=== PATIENT | male | born 1995 | race Asian ===

== ENCOUNTER 2021-12-15 21:15 | Emergency (ER) | payer OTHER ==
[~2021-12-15] VITALS: Ht 175.3 cm; Wt 100.0 kg
[2021-12-15 21:22] VITALS: BP 135/70
== END 2021-12-16 00:51 | disposition home or self-care (01) ==
LOC: EMS 21:17
DX: S61.211A Laceration without foreign body of left index finger without damage to nail, initial encounter (principal); W26.0XXA Contact with knife, initial encounter; Y93.89 Activity, other specified; Y92.89 Other specified places as the place of occurrence of the external cause; Y99.8 Other external cause status
CPT/HCPCS: 12001; 99282; Z7502